=== PATIENT | female | born 1955 | race African-American/Black ===

== ENCOUNTER 2022-03-13 12:11 | Inpatient (IN) | payer BC ==
[~2022-03-13] VITALS: Ht 160 cm; Wt 80.7 kg
[2022-03-13] MEDS ORDERED: FAMOTIDINE 20 MG/2 ML VIAL IV STA (12:30)
[2022-03-13] MEDS ORDERED: SODIUM CHLORIDE 0.9% 1000ML 1,000 ML IV ONE (12:30)
[2022-03-13] MEDS ORDERED: DONNATAL/LIDOCAINE/MAALOX 30 ML SUSP PO ONE (12:30)
[2022-03-13 13:00] LABS: BASOPHILS % 0.8 % (0.0-1.0); EOSINOPHILS # (AUTO) 0.1 (0.0-0.4); EOSINOPHILS % 1.3 % (0.0-6.0); HEMATOCRIT 42.4 % (34.2-44.1); HEMOGLOBIN 13.2 g/dL (12.0-16.0); LYMPHOCYTES # (AUTO) 1.1 (1.0-3.2); MEAN CORPUSCULAR HEMOGLOBIN 27.6 pg (28-32); MEAN CORPUSCULAR HGB CONC 31.1 g/dL (31-35); MEAN CORPUSCULAR VOLUME 88.7 fL (81-99); MONOCYTES # (AUTO) 0.3 (0.2-0.8); MONOCYTES % 8.6 % (4.4-11.3); NEUTROPHILS # (AUTO) 2.2 (2.1-6.9); NEUTROPHILS % 59.3 % (38.7-80.0); PLATELET COUNT 519 x10e3/uL (140-360); RED BLOOD COUNT 4.78 x10e6/uL (3.6-5.1); RED CELL DISTRIBUTION WIDTH 11.7 % (11.7-14.4)
[2022-03-13 13:29] LABS: ALBUMIN 3.8 g/dL (3.5-5.0); ANION GAP 20.2 mmol/L (8-16); CALCIUM 9.8 mg/dL (8.4-10.2); CREATININE, SERUM 0.8 mg/dL (0.57-1.11); POTASSIUM 3.2 mmol/L (3.5-5.1)
[2022-03-13] MEDS ORDERED: ONDANSETRON HCL 4 MG ORAL DISINTEGRATING TAB PO ONE (13:45)
[2022-03-13] MEDS ORDERED: IOPAMIDOL 370 MG/ML 100 ML INFUS..BTL INJ ONE (14:04)
[2022-03-13 14:41] LABS: CLARITY,URINE SL CLOUDY (CLEAR); COLOR,URINE AMBER (YELLOW)
[2022-03-13 14:42] LABS: KETONES,URINE >=160 (NEGATIVE); LEUKOCYTE ESTERASE ,URINE NEGATIVE (NEGATIVE); NITRITE,URINE NEGATIVE (NEGATIVE); PROTEIN,URINE DIPSTICK 1+ (NEGATIVE); URINE UROBILINOGEN 0.2 mg/dL (0.2 - 1)
[2022-03-13 15:02] LABS: AMORPHOUS SEDIMENT,URINE MODERATE (FEW); BACTERIA,URINE MODERATE /HPF; EPITHELIAL CELLS,URINE MODERATE /LPF; WBC,URINE (MAN) 0-5 /HPF (0-5)
[2022-03-13] MEDS ORDERED: SODIUM CHLORIDE FLUSH 10 ML SYR INJ PRN (17:30)
[2022-03-13 21:00] VITALS: BP 135/95
[2022-03-13] MEDS ORDERED: SODIUM CHLORIDE 0.9% 1000ML 1,000 ML IV SCH (21:00)
[2022-03-13] MEDS ORDERED: DEXTROSE 50% SYRINGE 50 ML IV PRN (23:45)
[2022-03-13] MEDS: LACTATED RINGER'S 1,000 ML INJ SCH (23:58)
[2022-03-14] VITALS (8 sets, daily range): BP systolic 126–139; BP diastolic 76–92
[2022-03-14] MEDS ORDERED: GLIPIZIDE5 MG PO (02:16)
[2022-03-14] MEDS ORDERED: LISINOPRIL40 MG (02:16)
[2022-03-14] MEDS ORDERED: HYDROCHLOROTHIA25 MG PO (02:16)
[2022-03-14] MEDS ORDERED: METFORMIN HCL500 MG PO (02:16)
[2022-03-14] MEDS ORDERED: ROSUVASTATIN CA20 MG PO (02:16)
[2022-03-14 04:58] LABS: EOSINOPHILS # (AUTO) 0.1 (0.0-0.4); EOSINOPHILS % 2.8 % (0.0-6.0); HEMATOCRIT 36.1 % (34.2-44.1); HEMOGLOBIN 12.1 g/dL (12.0-16.0); LYMPHOCYTES # (AUTO) 0.9 (1.0-3.2); LYMPHOCYTES % 31.8 % (18.0-39.1); MEAN CORPUSCULAR HEMOGLOBIN 27.6 pg (28-32); MEAN CORPUSCULAR HGB CONC 33.5 g/dL (31-35); MEAN CORPUSCULAR VOLUME 82.4 fL (81-99); MONOCYTES # (AUTO) 0.3 (0.2-0.8); MONOCYTES % 11.9 % (4.4-11.3); NEUTROPHILS # (AUTO) 1.5 (2.1-6.9); NEUTROPHILS % 52.5 % (38.7-80.0); PLATELET COUNT 448 x10e3/uL (140-360); RED BLOOD COUNT 4.38 x10e6/uL (3.6-5.1); RED CELL DISTRIBUTION WIDTH 11.9 % (11.7-14.4)
[2022-03-14 05:09] LABS: INR 1.03; PROTHROMBIN TIME 13.7 seconds (11.9-14.5)
[2022-03-14 05:20] LABS: ALBUMIN 3.2 g/dL (3.5-5.0); ANION GAP 16.3 mmol/L (8-16); CALCIUM 8.9 mg/dL (8.4-10.2); CREATININE, SERUM 0.76 mg/dL (0.57-1.11); POTASSIUM 3.3 mmol/L (3.5-5.1)
[2022-03-14] MEDS: LACTATED RINGER'S 1,000 ML INJ SCH (13:08)
[2022-03-14] MEDS: Morphine 2mg Syringe 2 MG/ML SYR IV PRN ×2 (13:08→21:46)
[2022-03-14] MEDS ORDERED: POTASSIUM CHLORIDE 20 MEQ TAB CR PO STA (20:38)
[2022-03-14] MEDS: ONDANSETRON HCL INJ 2MG/ML 2ML 2 MG/ML VIAL IV PRN (21:45)
[2022-03-15] VITALS (7 sets, daily range): BP systolic 123–145; BP diastolic 68–95
[2022-03-15] MEDS: LACTATED RINGER'S 1,000 ML INJ SCH ×3 (01:47→18:50)
[2022-03-15] MEDS: Morphine 2mg Syringe 2 MG/ML SYR IV PRN (01:48)
[2022-03-15] MEDS: ONDANSETRON HCL INJ 2MG/ML 2ML 2 MG/ML VIAL IV PRN (01:48)
[2022-03-15 05:39] LABS: ANION GAP 14.6 mmol/L (8-16); CALCIUM 8.7 mg/dL (8.4-10.2); CREATININE, SERUM 0.7 mg/dL (0.57-1.11); POTASSIUM 3.6 mmol/L (3.5-5.1)
[2022-03-15] MEDS ORDERED: POTASSIUM CHLORIDE 20 MEQ TAB CR PO SCH (09:00)
[2022-03-15] MEDS ORDERED: ALBUMIN 25% 12.5GM 50ML 150 ML IV ONE (12:19)
[2022-03-15] MEDS ORDERED: ALBUMIN 25% 12.5GM 50ML 50 ML IV ONE (13:08)
[2022-03-15 14:15] LABS: BODY FLUID TYPE PERITONEAL
[2022-03-15 14:16] LABS: BODY FLUID APPEARANCE TURBID; BODY FLUID COLOR RED
[2022-03-15 14:17] LABS: RBC,BODY FLUID 7000 cells/uL
[2022-03-15 14:18] LABS: WBC,BODY FLUID 1261 cells/uL
[2022-03-15 14:43] LABS: LYMPHOCYTES,BODY FLUID 16 %; MONO/MACROPHG,BODY FLUID 55 %; NEUTROPHILS,BODY FLUID 2 %; OTHER CELLS,BODY FLUID 27 %
[2022-03-16] VITALS: BP 112/65
[2022-03-16 05:12] LABS: BASOPHILS % 1.3 % (0.0-1.0); EOSINOPHILS # (AUTO) 0.1 (0.0-0.4); EOSINOPHILS % 5.9 % (0.0-6.0); HEMATOCRIT 36.5 % (34.2-44.1); HEMOGLOBIN 11.2 g/dL (12.0-16.0); LYMPHOCYTES % 41.2 % (18.0-39.1); MEAN CORPUSCULAR HEMOGLOBIN 27.5 pg (28-32); MEAN CORPUSCULAR HGB CONC 30.7 g/dL (31-35); MEAN CORPUSCULAR VOLUME 89.5 fL (81-99); MONOCYTES # (AUTO) 0.3 (0.2-0.8); MONOCYTES % 11.3 % (4.4-11.3); NEUTROPHILS % 40.3 % (38.7-80.0); PLATELET COUNT 410 x10e3/uL (140-360); RED BLOOD COUNT 4.08 x10e6/uL (3.6-5.1); RED CELL DISTRIBUTION WIDTH 11.6 % (11.7-14.4)
[2022-03-16 05:40] LABS: ALANINE AMINOTRANSFERASE < 6 IU/L (0-55); ALBUMIN 3.1 g/dL (3.5-5.0); ALBUMIN/GLOBULIN RATIO 1.3 (0.8-2.0); ALKALINE PHOSPHATASE 54 IU/L (40-150); ANION GAP 12.6 mmol/L (8-16); BLOOD UREA NITROGEN < 5 mg/dL (7-26); BUN/CREATININE RATIO 8 (6-25); CALCIUM 8.9 mg/dL (8.4-10.2); CARBON DIOXIDE 26 mmol/L (22-29); CHLORIDE 106 mmol/L (98-107); CREATININE, SERUM 0.64 mg/dL (0.57-1.11); GLUCOSE 98 mg/dL (74-118); POTASSIUM 3.6 mmol/L (3.5-5.1); SODIUM 141 mmol/L (136-145)
[2022-03-16] MEDS: ONDANSETRON HCL INJ 2MG/ML 2ML 2 MG/ML VIAL IV PRN (08:18)
[2022-03-16 08:21] VITALS: BP 131/85
[2022-03-16] MEDS: Morphine 2mg Syringe 2 MG/ML SYR IV PRN (08:22)
[2022-03-16 08:33] VITALS: BP 131/85
[2022-03-16 08:34] VITALS: BP 131/85
[2022-03-16 12:15] VITALS: BP 129/78
[2022-03-16 16:25] VITALS: BP 144/87
== END 2022-03-16 17:52 | disposition home or self-care (01) | DRG 844 ==
LOC: ER 12:20 → ERHOLD 17:26 → MED/SURG 20:57 → OBSVTOIN 03-15 08:51
PROVIDERS: ADMIT Family Medicine; ATTEND Family Medicine
PROC: 0W9G3ZZ Drainage of Peritoneal Cavity, Percutaneous Approach (ICD-10-PCS; principal; 2022-03-15)
DX: C80.1 Malignant (primary) neoplasm, unspecified (principal); R18.0 Malignant ascites; K74.60 Unspecified cirrhosis of liver; E11.9 Type 2 diabetes mellitus without complications; I10 Essential (primary) hypertension; Z79.84 Long term (current) use of oral hypoglycemic drugs; K76.0 Fatty (change of) liver, not elsewhere classified
CPT/HCPCS: 36415; 49083; 74177; 74470; 76856; 80048; 80053; 81001; 82040; 82948; 83690; 84157; 85025; 85610; 86304; 87070; 87205; 88112; 88305; 88342; 89051; 99284; C1729; G0378; J2270; J2405; J7030; J7121; Q0162; Q9967